=== PATIENT | female | born 1965 | race Caucasian/White ===

== ENCOUNTER 2017-03-29 10:25 | Emergency (ER) | payer OTHER ==
[~2017-03-29] VITALS: Ht 149.9 cm; Wt 83.5 kg
[~2017-03-29 10:25] MED LIST: ACETAMINOPHEN650 M2 PO; ASPIRIN325 MG PO; ASPIRIN81 M1; ASPIRIN81 M1 PO; AUGMENTIN875 MG PO; CLEOCIN300 MG PO; CLONIDINE HCL0.1 MG PO; DIOVAN80 MG PO; FLONASE16 GM NS; ISOSORBIDE MONO60 MG PO; LEVOTHYROXINE150 MCG PO; PREDNISONE5 M2 PO; SYNTHROID150 MCG PO; VYTORIN 10-101 EACH PO
[2017-03-29 10:43] VITALS: BP 178/75
[2017-03-29] MEDS ORDERED: WARFARIN SODIUM5 MG PO (14:20)
[2017-03-29] MEDS ORDERED: WARFARIN SODIUM1 MG PO (14:21)
== END 2017-03-29 14:23 | disposition home or self-care (01) ==
LOC: EME 10:25
DX: S80.11XA Contusion of right lower leg, initial encounter (principal); W01.0XXA Fall on same level from slipping, tripping and stumbling without subsequent striking against object, initial encounter; Z79.82 Long term (current) use of aspirin; Z79.01 Long term (current) use of anticoagulants; Z86.718 Personal history of other venous thrombosis and embolism; Z88.0 Allergy status to penicillin; Z88.5 Allergy status to narcotic agent; Z88.2 Allergy status to sulfonamides
CPT/HCPCS: 93971; 99281; 99284